=== PATIENT | male | born 1945 ===

== ENCOUNTER 2018-08-22 14:26 | Emergency (ER) | payer OTHER, BC ==
[~2018-08-22] VITALS: Ht 175.3 cm; Wt 88.5 kg
[2018-08-22] MEDS ORDERED: PROSCAR5 MG (15:29)
[2018-08-22] MEDS ORDERED: ALTACE5 MG (15:29)
[2018-08-22] MEDS ORDERED: ATORVASTATIN CA10 MG (15:29)
[2018-08-22] MEDS ORDERED: XANAX0.25 MG (15:29)
[2018-08-22] MEDS ORDERED: TURMERIC (15:30)
[2018-08-22] MEDS ORDERED: CENTRUM SILVER1 EAC4 (15:30)
[2018-08-22] MEDS ORDERED: METAMUCIL0.4 GM (15:30)
== END 2018-08-22 17:08 | disposition home or self-care (01) ==
LOC: ER 14:26
DX: R53.1 Weakness (principal)